=== PATIENT | male | born 1945 | race Caucasian/White ===

== ENCOUNTER → 2019-03-09 06:24 | Outpatient (CLI) | payer OTHER, SELFPAY ==
--- NOTE | 2019-03-09 06:36 | NM_ITS ---
PROCEDURE: NM THYROID IMAGE UPTAKE CLINICAL INDICATION: HYPERTHYROIDISM COMPARISON: No exams were available for comparison TECHNIQUE: Dose: 351 uCi I 123 p.o. FINDINGS: The 6 hour uptake is 8.9 percent normal is 3-16 percent. The 24 hour uptake is 17.7 percent with normal at 10 the 35 percent. The thyroid gland appears somewhat prominent specially the lower pole on the left with slight increased activity in the lower post/isthmus region on the left. Thyroid ultrasound may be of further value. No areas of focal decreased activity/cold spots IMPRESSION: 1. Normal 6 and 24 hour uptake 2. Mildly enlarged thyroid gland greater in the lower pole on the left with a small hyper intense focus in the isthmus/lower pole on the left. Thyroid ultrasound may be of further value. Medicine template Dictated by: Leander Dsouza MD 03/11/2019 06:04 Electronically signed by Leander Dsouza MD in [place] 03/11/2019 06:04
== END ==
PROVIDERS: PCP Nurse Practitioner Family; Visit Provider Nurse Practitioner Family
DX: E05.90 Thyrotoxicosis, unspecified without thyrotoxic crisis or storm (principal)
CPT/HCPCS: 78014; A9516

== ENCOUNTER → 2019-04-24 13:07 | Outpatient (CLI) | payer OTHER, SELFPAY ==
--- NOTE | 2019-04-24 13:12 | US_ITS ---
PROCEDURE: US THYROID CLINICAL INDICATION: THYROID NODULE Hyperthyroidism, abnormal nuclear study COMPARISON: NM THYROID IMAGE UPTAKE from 03/09/2019 FINDINGS: Right lobe: The right lobe is 6 x 1.9 x 1.8 cm with mostly homogeneous echogenicity. A 4 mm spongiform nodules present in the mid polar region benign-appearing. 4 mm hypoechoic nodule lower pole benign-appearing. There is a 1.4 cm slightly hypoechoic nodule in the lower pole posteriorly which is not well-defined. Left lobe: 6.5 x 2.2 x 1.9 cm with scattered benign-appearing nodules the largest in the lower pole at 2.5 x 1.4 cm and is somewhat spongiform. This is somewhat difficult to visualize. Isthmus: Additional findings: Unremarkable IMPRESSION: Enlarged thyroid gland with nonspecific nodules bilaterally. Suggest 6 month follow-up to confirm stability Dictated by: Leander Dsouza MD 04/24/2019 16:10 Electronically signed by Leander Dsouza MD in [place] 04/24/2019 16:10
== END ==
PROVIDERS: PCP Nurse Practitioner Family; Visit Provider Nurse Practitioner Family
DX: E05.90 Thyrotoxicosis, unspecified without thyrotoxic crisis or storm (principal)
CPT/HCPCS: 76536

== ENCOUNTER → 2020-06-30 15:58 | Outpatient (CLI) | payer MEDICARE, OTHER, SELFPAY ==
--- NOTE | 2020-06-30 16:04 | XR_ITS ---
PROCEDURE: XR KUB CLINICAL INDICATION: BLADDER STONE COMPARISON: No exams were available for comparison FINDINGS: The bowel gas pattern is unremarkable with a mild amount of retained colonic feces in the right colon. An oval calcific density is present in the lower pelvic region on the right measuring 18 by 10 mm and may represent a bladder stone. There are mild degenerative changes of the hips. There is a small density overlying the left L4 transverse process. This could represent sclerosis within that bony structure or a mid ureteral stone. This area measures 3 mm. There are degenerative changes in the lumbar spine IMPRESSION: Pelvic calcification consistent with a bladder stone. Possible left mid ureteral stone Dictated by: Leander Dsouza MD 06/30/2020 16:21 Leander Dsouza MD in [place] 06/30/2020 16:21
== END ==
PROVIDERS: Visit Provider Urology
DX: N21.0 Calculus in bladder (principal); R31.9 Hematuria, unspecified
CPT/HCPCS: 74018

== ENCOUNTER → 2020-08-09 15:24 | Outpatient (CLI) | payer MEDICARE, OTHER, SELFPAY ==
--- NOTE | 2020-08-09 15:44 | XR_ITS ---
PROCEDURE: XR KUB CLINICAL INDICATION: kidney stone COMPARISON: CR XR KUB from 06/30/2020 FINDINGS: There is a 4 mm stone overlying the lower pole of the right kidney. A laminated stone is present along the right aspect of the urinary bladder measuring 2 cm. There is mild lumbar scoliosis convex left. Hyperdense focus overlies the left L4 transverse process not significantly changed and may be due to an area of sclerosis as opposed to an overlying ureteral stone. IMPRESSION: Right nephrolithiasis. 2 cm bladder stone Dictated by: Leander Dsouza MD 08/09/2020 16:34 Leander Dsouza MD in [place] 08/09/2020 16:34
[2020-08-09 17:45] LABS: Prostate Specific Ag Screen 1.2 ng/ml (0.0-4.0)
== END ==
PROVIDERS: PCP Internal Medicine; Visit Provider Urology
DX: Z12.5 Encounter for screening for malignant neoplasm of prostate (principal); N20.0 Calculus of kidney
CPT/HCPCS: 36415; 74018; G0103

== ENCOUNTER → 2020-10-05 16:25 | Outpatient (CLI) | payer MEDICARE, SELFPAY ==
[2020-10-05 18:19] LABS: Coronavirus 19 IgG Antibody Positive (Negative); Coronavirus 19 IgM Antibody Negative (Negative)
== END ==
PROVIDERS: Visit Provider Urology
DX: N20.0 Calculus of kidney (principal); Z01.812 Encounter for preprocedural laboratory examination; Z20.822 Contact with and (suspected) exposure to COVID-19
CPT/HCPCS: 36415; 86328

== ENCOUNTER 2020-10-07 07:21 | Day surgery (SDC) | payer MEDICARE, OTHER, SELFPAY ==
[2020-10-04 13:36] VITALS: BMI 29.8
[2020-10-07] VITALS (13 sets, daily range): BP systolic 112–153; BP diastolic 51–73; PULSE 71–97; RESP 16–18; TEMP 36.4–42.7; O2SAT 92–98
--- NOTE | 2020-10-07 | XR_ITS ---
PROCEDURE: XR KUB CLINICAL INDICATION: IN OR.. EVAL BLADDER TO LEFT RENAL WITH CATHETER. COMPARISON: CR XR KUB from 08/09/2020 FINDINGS: Fluoroscopy time: 1.10 minute. Images submitted with the C-arm demonstrates a left ureteral stent ureteral scope or stent in place. Please correlate with fluoroscopic findings. IMPRESSION: Fluoroscopic assisted ureteroscopy Dictated by: Leander Dsouza MD 10/07/2020 17:24 Leander Dsouza MD in [place] 10/07/2020 17:24
[2020-10-07 08:19] LABS: POC Glucose,Bedside 124 (70-110)
[2020-10-07 08:31] LABS: Basophils # 0.1 K/mm3 (0-0.2); Basophils % 0.6 % (0.1-2.0); Eosinophils % 0.1 % (0.1-12.0); Hematocrit 45.1 % (42.0-52.0); Hemoglobin 14.5 g/dL (14.1-18.0); Lymphocytes # 2.5 K/mm3 (0.7-4.5); Lymphocytes % 27.2 % (10-50); Mean Corpuscular Hemoglobin 30.5 pg (27.0-31.2); Mean Corpuscular Volume 95.3 fl (80-94); Mean Platelet Volume 7.4 fl (7.4-10.4); Monocytes # 0.7 K/mm3 (0.1-1.0); Monocytes % 8.2 % (1.7-9.3); Neutrophils # 5.8 K/mm3 (1.8-7.8); Neutrophils % 63.8 % (37.0-80.0); Platelet Count 187 K/mm3 (142-424); Red Blood Count 4.73 M/mm3 (4.60-6.20); Red Cell Distribution Width 13.1 % (11.5-17.5); White Blood Count 9.1 K/mm3 (4.8-10.8)
[2020-10-07 08:34] LABS: Chloride 102 mmol/L (98-107); Sodium 138 mmol/L (136-145)
[2020-10-07 08:37] LABS: Blood Urea Nitrogen 10 mg/dl (9-20); Calcium 9.4 mg/dl (8.4-10.2); Carbon Dioxide 29 mmol/L (22.0-30.0); Creatinine Clearance Estimated 77 mL/min (50-200); Estimated Glomerular Filt Rate 110 ml/min (>60); GFR (African American) 133 ML/MIN (>60); Glucose 131 mg/dl (74-100)
--- NOTE | 2020-10-07 09:13 | P.PN_ITS ---
[facility] Anesthesia Checklist - Patient Identification Patient Identification: Arm Band - Structural Data Admitted From: Home Planned Operative Procedure/s: Cystolithopaxy with Laser Consent for Planned Operative Procedure(s) Verified: Yes Verified Documents: Surgical Consent, History and Physical - NPO Status Verified Time NPO: 00:00 - Additional verifications Anesthesia Reactions: No Hx Blood Transfusions: No Blood Transfusion Reaction: No - Airway Assessment C-Spine Mobility Assessed: Yes (mp2) TMJ Mobility Assessed: Yes Dentition: Dentures-good fit (Full Upper, Partial Lower. Dentures removed) - Neurological Assessment Level of Consciousness: Awake, Alert - Anesthesia Plan Anesthesia Risk discussed: Yes Anesthesia Plan: Verified ASA Class: III Anesthesia Type: General [facility] History I have reviewed the patient's past medical history: Yes Medical History: Reports:: Chronic Obstructive Pulmonary Disease (COPD), Diabetes Mellitus Type 2, Hypertension, Kidney Stones Denies:: Cancer, Diabetes Mellitus Type 1, Internal Pacemaker, Seizures *Have you ever received a pneumonia vaccine?: Yes *Have you received a flu vaccine this season?: Yes Other Medical History: Reports: Glaucoma. Denies: Blood Transfusion Reaction Anesthesia experience/problems:: nac Other Surgeries: Yes: Colonoscopy. No: Pacemaker Amputation: No - *Social History Smoking Status: Current every day smoker Tobacco Type: cigarettes # Packs/Day (cigarettes): 1 Alcohol Intake: never Substance Use Type: denies use *Occupational Status:: retired Housing: house Household Members: spouse *Travel in the last 8 weeks: None Family Hx:: Diabetes
--- NOTE | 2020-10-07 09:43 | P.PN_ITS ---
[facility] Anesthesia Record Part I Intake, IV Amount: 900 Estimated blood loss (mL): 0 Urine output (mL): 0 Blood Pressure: 123/57 SaO2: 94 Pulse Rate: 94 Respiratory Rate: 16 Temperature: 97.5 F Patient is:: Drowsy, Stable Stable to PACU at:: 09:40
--- NOTE | 2020-10-07 10:08 | P.OP_ITS ---
Date of procedure: 10/07/20 Pre-op Diagnosis:: 1.8 cm bladder stone/left lower quadrant pain Post-op Diagnosis:: Same Procedure performed:: Cystolitholopaxy with the holmium laser/left ureteral catheterization. Surgeon:: Ayo Billingsley MD Anesthesia: LMA Estimated blood loss (mL): 0 Clinical Note:: Patient is a 75-year-old white male with history of BPH and bladder stone. He also has a history of nephrolithiasis and is known to have a 3 mm left lower pole stone. He has been complaining of some left lower quadrant pain recently. Operative findings:: The crystallize bladder stone was noted in the bladder. It was fragmented with the holmium laser and all stone fragments were removed with the Urovac bladder medical information officer. The left ureter was catheterized with a 5 [address] [facility]ian Pollick and under fluoroscopy passed up to the renal pelvis and there is no evidence of resistance or calcifications in the course of the ureter. Operative note:: Patient taken to the operating room after informed consent was obtained. Is placed on the operating table in the supine position and general anesthesia administered. Preoperative antibiotics and sequential compression devices placed. He was then placed into the dorsal lithotomy position and prepped draped in the standard surgical fashion. 22 Panda passed into the urethra a nd to the prostatic urethra which revealed a high bladder neck. The bladder was entered and examined in a systematic fashion. There was moderate trabeculation present in the 1.8 cm bladder stone noted in the right side of the bladder. Large median lobe was noted. No mucosal abnormalities were noted. The ureteral orifices in their normal anatomic position with clear efflux of urine. A 550 nm laser fiber then passed through the cystoscope and with settings of 1 and 10 we fragmented the stone up into small pieces and the stone fragments were irrigated free with the Urovac bladder medical information officer. A 5 [address] [place]ian ureteral catheter then passed through the scope and into the left ureter. Under fluoroscopy we passed this catheter up to the renal pelvis and there was no evidence of any resistance or calcifications in the course of the ureter. The bladder was drained and the scope removed. Urojet placed into the urethra. Was transported to the recovery in stable condition. Condition: stable Disposition: PACU Specimens:: Bladder stones Complications:: None
[2020-10-07 10:12] LABS: POC Glucose,Bedside 140 (70-110)
--- NOTE | 2020-10-07 11:17 | HMH.ANESII ---
[facility] Anesthesia Record Part II Discharge Time: 10:10 Destination: Surgical Day Care (OP Surgery) PACU nurse assessment reviewed?: Yes Patient Condition:: Good Anesthesia Complications:: None Swallowing reflex intact?: Yes Cyanosis?: No Blood Pressure: 148/70 Pulse Rate: 85 Temperature: 97.8 F Mental Status: Alert & Oriented Pain level:: 0 Nausea and/or vomitting:: None Intake, IV Amount: 0
[2020-11-12 16:36] LABS: Ca oxalate dihydrate 60; Magnesium ammon phos 0
[2020-11-12 16:37] LABS: Ammonium acid urate 0; Calcium bilirubinate 0; Calcium carbonate 0; Calcium phosphate 5; Cholesterol 0; Sodium acid urate 0; Uric acid dihydrate 0
== END 2020-10-07 11:10 | disposition home or self-care (01) ==
LOC: OR 07:22
PROVIDERS: PCP Family Medicine; Visit Provider Urology
PROC: 0TJB8ZZ Inspection of Bladder, Via Natural or Artificial Opening Endoscopic (ICD-10-PCS; CPT 52000; principal; 2020-10-07 08:30)
DX: N21.0 Calculus in bladder (principal); J44.9 Chronic obstructive pulmonary disease, unspecified; E11.9 Type 2 diabetes mellitus without complications; I10 Essential (primary) hypertension; Z72.0 Tobacco use; Z79.82 Long term (current) use of aspirin; Z79.899 Other long term (current) drug therapy; Z79.84 Long term (current) use of oral hypoglycemic drugs
CPT/HCPCS: 52318; 74018; 76000; 80048; 82370; 82962; 85025; 96374; J2405

== ENCOUNTER → 2021-03-24 13:18 | Outpatient (CLI) | payer MEDICARE, OTHER, SELFPAY ==
--- NOTE | 2021-03-24 13:30 | CT_ITS ---
PROCEDURE INFORMATION: Exam: CT Abdomen And Pelvis Without And With Contrast Exam date and time: 03/24/2021 1:30 PM Age: 76 years old Clinical indication: Other: Renal lesion TECHNIQUE: Imaging protocol: Computed tomography of the abdomen and pelvis without and with contrast. Radiation optimization: All CT scans at this facility use at least one of these dose optimization techniques: automated exposure control; mA and/or kV adjustment per patient size (includes targeted exams where dose is matched to clinical indication); or iterative reconstruction. Contrast material: ISOVUE 370; Contrast volume: 75 ml; Contrast route: INTRAVENOUS (IV); COMPARISON: SD XR KUB 10/07/2020 12:00 AM FINDINGS: Liver: Normal. No mass. Gallbladder and bile ducts: Normal. No calcified stones. No ductal dilation. Pancreas: Normal. No ductal dilation. Spleen: The spleen demonstrates punctate calcifications, consistent with remote granulomatous organism exposure. Adrenal glands: Normal. No mass. Kidneys and ureters: 2.5 cm right renal cyst is present. The left kidney is normal. Stomach and bowel: Mild diverticulosis is present in the distal colon. Appendix: No evidence of appendicitis. Intraperitoneal space: Normal. No significant fluid collection. Vasculature: Unremarkable. No abdominal aortic aneurysm. Lymph nodes: Unremarkable. No enlarged lymph nodes. Urinary bladder: Unremarkable as visualized. Reproductive: The prostate demonstrates mild nonspecific enlargement. The seminal vesicles are normal. The prostate gland demonstrates nonspecific parenchymal calcifications. Bones/joints: The lumbar spine demonstrates moderate degenerative changes at multiple levels. Soft tissues: Ventral wall hernia is present with a small portion of bowel noted. IMPRESSION: 1. 2.5 cm right renal cyst is present. 2. Ventral wall hernia is present with a small portion of bowel noted. 3. Mild diverticulosis is present in the distal colon. COMMENTS: Consistent with the [employer]'s Incidental Findings Committee white paper (J Am Shashank Radiol 2018): Any incidental renal lesion less than 1 cm or classified as too small to characterize, or any incidental cystic renal lesion characterized as simple-appearing, is likely benign. No follow-up imaging is recommended for these lesions per consensus recommendations based on imaging criteria.
[2021-03-24 13:34] LABS: Basophils % 0.5 % (0.1-2.0); Eosinophils % 0.5 % (0.1-12.0); Hematocrit 46.1 % (42.0-52.0); Hemoglobin 15.5 g/dL (14.1-18.0); Lymphocytes # 2.4 K/mm3 (0.7-4.5); Lymphocytes % 31.3 % (10-50); Mean Corpuscular HGB Conc 33.5 g/dL (31.8-35.4); Mean Corpuscular Hemoglobin 32.4 pg (27.0-31.2); Mean Corpuscular Volume 96.6 fl (80-94); Mean Platelet Volume 7.2 fl (7.4-10.4); Monocytes # 0.5 K/mm3 (0.1-1.0); Monocytes % 6.8 % (1.7-9.3); Neutrophils # 4.7 K/mm3 (1.8-7.8); Neutrophils % 60.9 % (37.0-80.0); Platelet Count 174 K/mm3 (142-424); Red Blood Count 4.77 M/mm3 (4.60-6.20); Red Cell Distribution Width 12.4 % (11.5-17.5); White Blood Count 7.8 K/mm3 (4.8-10.8)
[2021-03-24 13:35] LABS: Chloride 102 mmol/L (98-107); Sodium 139 mmol/L (136-145)
[2021-03-24 13:36] LABS: Potassium 5.2 mmoL/L (3.5-5.1)
[2021-03-24 13:39] LABS: Anion Gap 10.2 mEq/L (5-15); Blood Urea Nitrogen 10 mg/dl (9-20); Calcium 9.6 mg/dl (8.4-10.2); Carbon Dioxide 32 mmol/L (22.0-30.0); Estimated Glomerular Filt Rate 109 ml/min (>60); GFR (African American) 132 ML/MIN (>60); Glucose 123 mg/dl (74-100)
== END ==
PROVIDERS: PCP Family Medicine; Visit Provider Urology
DX: N21.0 Calculus in bladder (principal); N28.9 Disorder of kidney and ureter, unspecified
CPT/HCPCS: 36415; 74178; 80048; 85025; Q9967

== ENCOUNTER 2023-05-08 13:23 | Emergency (ER) | payer MEDICARE, OTHER, SELFPAY ==
[2023-05-08 13:25] VITALS: BP 111/63; PULSE 109; RESP 18; TEMP 36.7; O2SAT 93; BMI 28.1
--- NOTE | 2023-05-08 14:02 | EXP.UTC ---
Discharge Plan Disposition Patient Disposition: Home, Self-Care Condition: Good Prescriptions Prescriptions: New methylprednisolone 4 mg Tablets,Dose Pack 4 mg PO DIRECTED Qty: 21 0RF triamcinolone acetonide 0.1 % cream 1 applic topical BID PRN (Reason: itching) Qty: 30 0RF No Action losartan 100 mg tablet 100 mg PO DAILY amlodipine 5 mg tablet 5 mg PO DAILY metformin 500 mg tablet 500 mg PO BID ascorbic acid (vitamin C) 1,000 mg tablet extended release 1,000 mg PO Q12H B-complex with vitamin C Tablet 1 tab PO DAILY tamsulosin 0.4 mg capsule 0.4 mg PO DAILY Qty: 90 3RF atorvastatin 10 MG tablet 10 mg PO HS aspirin 81 MG tablet,delayed release (DR/EC) 81 mg PO DAILY tamsulosin 0.4 MG capsule 0.4 mg PO HS cholecalciferol (vitamin D3) 125 MCG tablet 5,000 unit PO DAILY Referrals Follow up/Referrals: Provider,Referral, MD [Primary Care Provider] - See instructions Activity Restrictions/Add. Instructions Additional Instructions/Restrictions: Drink plenty of fluids. Take tylenol or ibuprofen for pain or fever. Take the medications as directed. Follow up with your regular doctor. GO TO THE ER FOR ANY WORSENING SYMPTOMS Clinical Impressions Clinical Impression: Tendinopathy of left shoulder Discharge ED Provider: Christoph Gallo [facility] General Stated complaint: RASH ON ARMS AND INNER THIGHS Mode of Arrival: Ambulatory Source of Information: Patient Limitations: No Limitations Time Seen by Provider: 05/08/23 14:02 HEENT Symptoms (Recalled from RN notes): No Resp Symptoms (Recalled from RN notes): No Skin Symptoms (Recalled from RN notes): No MS Symptoms (Recalled from RN notes): Yes Functional Status (Recalled from RN notes): wnl History of Present Illness Provider Complaint: He states that he has had left shoulder pain after pulling a frigde and stove out a few weeks ago to paint behind it. He states that if he hold himself while he coughs he doesn't hurt as bad, when he lays on that side or moves it hurts more. He has [facility] that he has a rotator cuff injury. He also has an itchy rash on his inner thighs and his under arms. Related Data Home Medications Medication Instructions Recorded Confirmed B-complex with vitamin C 1 tab PO DAILY Supplement 06/30/20 03/28/21 amlodipine 5 mg tablet 5 mg PO DAILY High blood pressure 06/30/20 03/28/21 ascorbic acid (vitamin C) 1,000 mg 1,000 mg PO Q12H Supplement 06/30/20 03/28/21 tablet,extended release losartan 100 mg tablet 100 mg PO DAILY High blood pressure 06/30/20 03/28/21 metformin 500 mg tablet 500 mg PO BID Diabetes 06/30/20 03/28/21 aspirin 81 mg tablet,delayed 81 mg PO DAILY heart health 10/04/20 03/28/21 release atorvastatin 10 mg tablet 10 mg PO HS Cholesterol 10/04/20 03/28/21 cholecalciferol (vitamin D3) 125 5,000 unit PO DAILY Supplement 10/04/20 03/28/21 mcg (5,000 unit) tablet tamsulosin 0.4 mg capsule 0.4 mg PO HS urinary 10/04/20 03/28/21 Previous Rx's Medication Instructions Recorded tamsulosin 0.4 mg capsule 0.4 mg PO DAILY #90 caps 02/23/22 methylprednisolone 4 mg tablets in 4 mg PO DIRECTED #21 tabs 05/08/23 a dose pack triamcinolone acetonide 0.1 % 1 applic topical BID PRN itching 05/08/23 topical cream #30 grams Allergies Allergy/AdvReac Type Severity Reaction Status Date / Time No Known Allergies Allergy Verified 03/28/21 14:51 Worker's Comp Is this a Worker's Comp case?: No [facility] Disclaimer: The information contained in this section may have been updated after the patient was seen, as this information can be updated by other users. Social History Smoking Status: Current every day smoker tobacco type: cigarettes packs per day: 1 alcohol intake: never substance use type: denies use current occupational status: retired Travel in the last 8 weeks: None household members:
[2023-05-08 14:43] VITALS: BP 111/63; PULSE 109; RESP 18; TEMP 36.7; O2SAT 93
== END 2023-05-08 14:45 | disposition home or self-care (01) ==
PROVIDERS: Emergency Provider Nurse Practitioner Family
DX: M25.512 Pain in left shoulder (principal); R21 Rash and other nonspecific skin eruption; F17.210 Nicotine dependence, cigarettes, uncomplicated; M67.912 Unspecified disorder of synovium and tendon, left shoulder
CPT/HCPCS: 96372; 99204; 99212; G0463

== ENCOUNTER 2023-05-20 09:18 | Emergency (ER) | payer MEDICARE, OTHER, SELFPAY ==
--- NOTE | 2023-05-20 09:23 | HMH.EDGENADL ---
Discharge Plan Disposition Patient Disposition: Date/Time: 05/20/23 09:21 Clinical Impressions Clinical Impression: Cardiac arrest, Acute respiratory failure Discharge ED Provider: Sammi Molina General Adult HPI General Stated complaint: arrest Time Seen by Provider: 05/20/23 09:23 Source of Information: EMS and Law Enforcement History of Present Illness HPI narrative: This patient is a 78-year-old male presented to the emergency department as a CODE BLUE. According to the [facility] deputy and EMS, by which the patient arrived, 's deputy arrived on scene around 8:20 AM, and found the patient unresponsive and pulseless. CPR was initiated at that time. He did administer 1 round of defibrillation, though he notes that he had called for the quality control microbiologist on scene because he felt it was futile. EMS then arrived. According to EMS/the [facility], they note that the patient had likely fallen around 1 AM, as the had heard a loud thud. When she woke this morning around 7 AM, she found him down and unresponsive. Emergency response was dispatched around 7:30 AM. EMS arrived on scene and their initial rhythm was noted to be asystole. They gave 2 rounds of epinephrine as well as a round of bicarb and the patient remained in asystole the entire time. Patient had been coding for approximately an hour upon arrival. They report that they initially had him intubated, but then they lost the tube and placed an LMA. Related Data Home Medications Medication Instructions Recorded Confirmed B-complex with vitamin C 1 tab PO DAILY Supplement 06/30/20 03/28/21 amlodipine 5 mg tablet 5 mg PO DAILY High blood pressure 06/30/20 03/28/21 ascorbic acid (vitamin C) 1,000 mg 1,000 mg PO Q12H Supplement 06/30/20 03/28/21 tablet,extended release losartan 100 mg tablet 100 mg PO DAILY High blood pressure 06/30/20 03/28/21 metformin 500 mg tablet 500 mg PO BID Diabetes 06/30/20 03/28/21 aspirin 81 mg tablet,delayed 81 mg PO DAILY heart health 10/04/20 03/28/21 release atorvastatin 10 mg tablet 10 mg PO HS Cholesterol 10/04/20 03/28/21 cholecalciferol (vitamin D3) 125 5,000 unit PO DAILY Supplement 10/04/20 03/28/21 mcg (5,000 unit) tablet tamsulosin 0.4 mg capsule 0.4 mg PO HS urinary 10/04/20 03/28/21 Previous Rx's Medication Instructions Recorded tamsulosin 0.4 mg capsule 0.4 mg PO DAILY #90 caps 02/23/22 methylprednisolone 4 mg tablets in 4 mg PO DIRECTED #21 tabs 05/08/23 a dose pack triamcinolone acetonide 0.1 % 1 applic topical BID PRN itching 05/08/23 topical cream #30 grams Allergies Allergy/AdvReac Type Severity Reaction Status Date / Time No Known Allergies Allergy Verified 03/28/21 14:51 [facility] Disclaimer: The information contained in this section may have been updated after the patient was seen, as this information can be updated by other users. Social History Smoking Status: Current every day smoker tobacco type: cigarettes packs per day: 1 alcohol intake: never substance use type: denies use current occupational status: retired Travel in the last 8 weeks: None household members: spouse housing: house caffeine: Yes ROS Obtained: Yes unobtainable due to mental status Physical Exam General General appearance: in distress Comment: Unresponsive, pulseless, and apneic with an LMA in place Head Head exam: other (Blood from the nares and oropharynx noted) Eye Eye exam: Absent normal appearance or PERRL (Pupils fixed and dilated with no response to light) ENT ENT exam: Present other (LMA in place with blood spurting from the mouth with bagged respirations) Neck Neck exam: Present normal inspection Chest Chest inspection: Present other (Drew device in place administering chest compressions. Breath sounds heard bilaterally when bagged via LMA. No heart sounds noted.) Respiratory Respiratory exam: Present other (Br
--- NOTE | 2023-05-20 09:25 | PC.NURSE ---
0915- [facility] arrived in [place] with Drew device in use on pt. EMS reports pt last known normal was at 1am according to . Pt was found down by his at 7am unresponsive. states he started CPR at approximately 0835. EMS arrived shortly after and placed a LMA, gave 2 rounds of epi and 1 amp of Bicarb in route. IO in place to left tibia. 0916- Pt moved to bed in room 3 and zoll pads placed with Drew still in place. Drew paused for a pulse check. No Pulse, asystole in monitor. CPR continued. 0919- Puse check. No pulse, asystole on monitor. CPR continued. 0920- 1mg Epi given IO 0921- Pulse check. No pulse, asystole on monitor. TOCeleste called at 0921
[2023-05-20 09:27] VITALS: BMI 28.7
--- NOTE | 2023-05-20 09:37 | PC.NURSE ---
SPOKE WITH JAMES BERRIOS, AT [facility]. PT NOT A CANDIDATE FOR DONATION.
--- NOTE | 2023-05-21 14:51 | P.DN_ITS ---
Pronouncement Note Date and Time of Date of : 05/21/23 Time of : 09:21 PCOD Preliminary cause of : Cardiac arrest with pulseless electrical activity Additional Data Confirmation of : no pulse, no respirations, no heart sounds and pupils fixed and dilated Family: contacted Attending/PCP notified?: Yes Attending physician: Sammi Molina Was code activated?: Yes Autopsy requested?: No elevator examiner notified?: Yes Organ bank notified?: Yes Advance directives: No
== END 2023-05-20 12:07 | disposition expired ==
PROVIDERS: Emergency Provider Emergency Medicine
DX: I46.9 Cardiac arrest, cause unspecified (principal); J96.00 Acute respiratory failure, unspecified whether with hypoxia or hypercapnia; F17.210 Nicotine dependence, cigarettes, uncomplicated
CPT/HCPCS: 92950; 96374; 99285